=== PATIENT | female | born 1955 | race Caucasian/White ===

== ENCOUNTER 2024-01-06 07:25 | Inpatient (IN) | payer OTHER ==
[~2024-01-06] VITALS: Ht 160 cm; Wt 83.0 kg
[2024-01-06 07:38] VITALS: BP_SYST 186; PULSE 115; RESP 18; TEMP 98.3; O2SAT 98
[2024-01-06] MEDS: MORPHINE 2 MG/ML INJ. SYRINGE IM ONE ×2 (10:00→18:11)
[2024-01-06] MEDS: LORazepam 1 MG TABLET PO ONE (10:42)
[2024-01-06] MEDS: ONDANSETRON 4 MG ODT TAB PO ONE (10:42)
[2024-01-06 11:35] LABS: BASOPHILS # (AUTO) 0.1 K/uL (0.0-0.2); BASOPHILS % (AUTO) 0.7 % (0.0-2.0); EOSINOPHILS # (AUTO) 0.1 K/uL (0.0-0.4); EOSINOPHILS % (AUTO) 0.8 % (0.0-4.0); HEMATOCRIT 45.5 % (36-48); HEMOGLOBIN 15.7 g/dL (12.0-16.0); LYMPHOCYTES # (AUTO) 1.3 K/uL (1.0-5.5); MEAN CORPUSCULAR HEMOGLOBIN 29 pg (27-31); MEAN CORPUSCULAR HGB CONC 35 % (32-36); MEAN CORPUSCULAR VOLUME 85 fL (79.0-98.0); MONOCYTES # (AUTO) 0.9 K/uL (0.0-1.0); MONOCYTES % (AUTO) 7.4 % (1.7-9.3); NEUTROPHILS # (AUTO) 9.3 K/uL (1.8-7.7); NEUTROPHILS % (AUTO) 80.1 % (40.0-70.0); PLATELET COUNT (AUTO) 260 K/uL (130-430); RED BLOOD CELL COUNT(AUTO) 5.34 MIL/uL (4.2-6.2); RED CELL DISTRIBUTION WIDTH 13.4 % (9.0-15.0); WHITE BLOOD COUNT (AUTO) 11.6 K/uL (4.8-10.8)
[2024-01-06 11:51] LABS: CREATININE 0.65 mg/dL (0.55-1.30); POTASSIUM 3.8 mmol/L (3.5-5.1)
[2024-01-06] MEDS ORDERED: ACETAMINOPHEN 325 MG TABLET PO PRN (12:00)
[2024-01-06] MEDS: KETOROLAC TROMETHAMINE 30 MG VIAL IVP PRN (14:29)
[2024-01-06 22:00] VITALS: BP_SYST 153; PULSE 88; RESP 18; TEMP 97.6
[2024-01-06] MEDS ORDERED: ONDANSETRON HCL 4 MG/2 ML VIAL IVP PRN (23:45)
[2024-01-06] MEDS ORDERED: LORazepam 2 MG/ML VIAL IVP PRN (23:45)
[2024-01-07 00:56] VITALS: BP_SYST 141; PULSE 91; RESP 18; TEMP 97.5; O2SAT 90
[2024-01-07] MEDS: NORMAL SALINE 5 ML DISP.SYRIN IVF SCH (05:53)
[2024-01-07] MEDS: HYDROcodone/ACETAMIN 10-325 MG TAB PO PRN (05:58)
[2024-01-07 06:46] LABS: BASOPHILS # (AUTO) 0.1 K/uL (0.0-0.2); BASOPHILS % (AUTO) 0.8 % (0.0-2.0); EOSINOPHILS # (AUTO) 0.2 K/uL (0.0-0.4); EOSINOPHILS % (AUTO) 2.3 % (0.0-4.0); HEMATOCRIT 45.2 % (36-48); HEMOGLOBIN 15.8 g/dL (12.0-16.0); LYMPHOCYTES # (AUTO) 2.1 K/uL (1.0-5.5); LYMPHOCYTES % (AUTO) 23.4 % (20.5-51.5); MEAN CORPUSCULAR HEMOGLOBIN 30 pg (27-31); MEAN CORPUSCULAR HGB CONC 35 % (32-36); MEAN CORPUSCULAR VOLUME 86 fL (79.0-98.0); MONOCYTES # (AUTO) 0.9 K/uL (0.0-1.0); MONOCYTES % (AUTO) 10.3 % (1.7-9.3); NEUTROPHILS # (AUTO) 5.8 K/uL (1.8-7.7); NEUTROPHILS % (AUTO) 63.2 % (40.0-70.0); PLATELET COUNT (AUTO) 250 K/uL (130-430); RED BLOOD CELL COUNT(AUTO) 5.27 MIL/uL (4.2-6.2); RED CELL DISTRIBUTION WIDTH 13.5 % (9.0-15.0); WHITE BLOOD COUNT (AUTO) 9.1 K/uL (4.8-10.8)
[2024-01-07 07:35] LABS: ALBUMIN 3.4 g/dL (3.4-4.8); CALCIUM 8.7 mg/dL (8.4-11.0); CREATININE 0.75 mg/dL (0.55-1.30); POTASSIUM 3.5 mmol/L (3.5-5.1); TOTAL BILIRUBIN 0.9 mg/dL (0.0-1.0); TOTAL PROTEIN, SERUM 7.4 g/dL (6.4-8.3)
[2024-01-07 08:00] VITALS: BP_SYST 132; PULSE 84; RESP 16; TEMP 97; O2SAT 96
[2024-01-07 11:05] VITALS: BP_SYST 126; PULSE 82; RESP 16; TEMP 96; O2SAT 92
[2024-01-07 15:20] VITALS: BP_SYST 135; PULSE 81; RESP 16; TEMP 97; O2SAT 93
[2024-01-07] MEDS: HYDROcodone/ACETAMIN 5-325 MG TAB (NORCO/ VICODIN) PO PRN (18:08)
[2024-01-07 20:00] VITALS: BP_SYST 139; PULSE 82; RESP 18; TEMP 97.4; O2SAT 90; O2SAT 96
[2024-01-08] VITALS: BP_SYST 150; PULSE 82; RESP 18; TEMP 96.5; O2SAT 91
[2024-01-08 04:00] VITALS: BP_SYST 153; PULSE 82; RESP 18; TEMP 96.4; O2SAT 90
[2024-01-08 05:55] LABS: BASOPHILS # (AUTO) 0.1 K/uL (0.0-0.2); EOSINOPHILS # (AUTO) 0.2 K/uL (0.0-0.4); EOSINOPHILS % (AUTO) 2.6 % (0.0-4.0); LYMPHOCYTES # (AUTO) 2.2 K/uL (1.0-5.5); LYMPHOCYTES % (AUTO) 26.2 % (20.5-51.5); MEAN CORPUSCULAR HEMOGLOBIN 29 pg (27-31); MEAN CORPUSCULAR HGB CONC 35 % (32-36); MEAN CORPUSCULAR VOLUME 85 fL (79.0-98.0); MONOCYTES % (AUTO) 11.1 % (1.7-9.3); NEUTROPHILS # (AUTO) 5.1 K/uL (1.8-7.7); NEUTROPHILS % (AUTO) 59.1 % (40.0-70.0); PLATELET COUNT (AUTO) 264 K/uL (130-430); RED BLOOD CELL COUNT(AUTO) 5.43 MIL/uL (4.2-6.2); RED CELL DISTRIBUTION WIDTH 13.6 % (9.0-15.0); WHITE BLOOD COUNT (AUTO) 8.6 K/uL (4.8-10.8)
[2024-01-08 06:30] LABS: CALCIUM 9.1 mg/dL (8.4-11.0); CREATININE 0.68 mg/dL (0.55-1.30); POTASSIUM 3.7 mmol/L (3.5-5.1)
[2024-01-08 08:00] VITALS: BP_SYST 156; PULSE 79; RESP 18; TEMP 98.2; O2SAT 99
[2024-01-08] MEDS ORDERED: HYDR-3927 PO ×3 (09:53→12:38)
[2024-01-08 11:20] VITALS: BP_SYST 156; PULSE 89; RESP 18; TEMP 98; O2SAT 97
== END 2024-01-08 12:00 | disposition home health service (06) | DRG 552 ==
LOC: SED 07:25 → SMU 11:54
PROVIDERS: ADMIT Preventive Medicine Preventive Medicine/Occupational Environmental Medicine; ATTEND Preventive Medicine Preventive Medicine/Occupational Environmental Medicine
DX: S32.019A Unspecified fracture of first lumbar vertebra, initial encounter for closed fracture (principal); D72.829 Elevated white blood cell count, unspecified; K76.0 Fatty (change of) liver, not elsewhere classified; K80.20 Calculus of gallbladder without cholecystitis without obstruction; M51.36 Other intervertebral disc degeneration, lumbar region; W18.39XA Other fall on same level, initial encounter; Z90.710 Acquired absence of both cervix and uterus; Y93.89 Activity, other specified; Y92.89 Other specified places as the place of occurrence of the external cause; Y99.8 Other external cause status; W18.30XA Fall on same level, unspecified, initial encounter; R79.89 Other specified abnormal findings of blood chemistry
CPT/HCPCS: 36415; 72128; 72131; 80048; 80053; 85025; 96372; 96374; 96375; 97116-GP; 97530-GP; 99285; J1885; J2270; Q0162